=== PATIENT | female | born 1960 | race Caucasian/White ===

== ENCOUNTER 2018-10-19 04:47 | Emergency (ER) | payer OTHER ==
[2018-10-19] MEDS ORDERED: Ketorolac 60 MG/2 ML SDV IM ONE (05:16)
[2018-10-19] MEDS ORDERED: Ondansetron 4 MG Tab.DIS PO ONE (05:17)
[2018-10-19] MEDS ORDERED: Acetaminophen/oxyCODONE 325-5 MG Tab PO ONE (05:22)
--- NOTE | 2018-10-19 05:28 | EDM.PDOC ---
ED HPI GENERAL MEDICAL PROBLEM - General Chief Complaint: General Stated Complaint: STOMACH PAIN-LEFT SIDE, BACK PAIN Time Seen by Provider: 10/19/18 05:15 Source of Information: Reports: Patient, Old Records, RN History Limitations: Reports: No Limitations - History of Present Illness INITIAL COMMENTS - FREE TEXT/NARRATIVE: 58 yo female here with L flank and L sided abdominal pain. This has come and gone for a couple days, but is more steady tonight. She has had nausea on and off tonight, but no vomiting. No fever. No dysuria or hematuria. Is s/p gastric bypass. Has a pHx of kidney stones and this reminds her of that. Onset: Sudden Onset Date: 10/16/18 Duration: Day(s):, Intermittent, Waxing/Waning Location: Reports: Abdomen (L sided) left flank/ abd Pain Score (Numeric/FACES): 6 - Related Data Allergies Allergy/AdvReac Type Severity Reaction Status Date / Time No Known Allergies Allergy Verified 10/19/18 05:01 Home Meds: Home Meds Cholecalciferol (Vitamin D3) [Vitamin D3] 4,000 unit PO DAILY 10/19/18 [History] Cyanocobalamin (Vitamin B12) [Vitamin B12] 1,000 mcg PO DAILY 10/19/18 [History] Ferrous Sulfate [Iron] 325 mg PO DAILY 10/19/18 [History] Levothyroxine Sodium [Synthroid] 100 mcg PO ACBREAKFAST 10/19/18 [History] Multivit &Minerals/Ferrous Fum [Multivitamin Liquid] 15 ml PO DAILY 10/19/18 [ History] Vitamin B Complex 1 each PO DAILY 10/19/18 [History] buPROPion [Wellbutrin] 100 mg PO BID 10/19/18 [History] Past Medical History HEENT History: Reports: Impaired Vision Respiratory History: Reports: Asthma Gastrointestinal History: Reports: Chronic Constipation Genitourinary History: Reports: Renal Calculus [employer] History: Reports: Musculoskeletal History: Reports: Osteoarthritis Psychiatric History: Reports: Depression Endocrine/Metabolic History: Reports: Hypothyroidism, Obesity/BMI 30+ - Past Surgical History GI Surgical History: Reports: Bariatric Procedure, Cholecystectomy, Colonoscopy Female Surgical History: Reports: Hysterectomy Musculoskeletal Surgical History: Reports: Hip Replacement Social & Family History - Tobacco Use Smoking Status *Q: Never Smoker - Caffeine Use Caffeine Use: Reports: Coffee, Soda - Recreational Drug Use Recreational Drug Use: No ED ROS GENERAL - Review of Systems Review Of Systems: See Below Constitutional: Reports: No Symptoms HEENT: Reports: No Symptoms Respiratory: Reports: No Symptoms Cardiovascular: Reports: No Symptoms Endocrine: Reports: No Symptoms GI/Abdominal: Reports: Abdominal Pain (L sided), Nausea. Denies: Black Stool, Bloody Stool, Constipation, Diarrhea, Distension, Flatus, Hematemesis, Hematochezia, Melena, Vomiting : Reports: Flank Pain (intermittent L flank pain). Denies: Dysuria, Frequency , Hematuria, Incontinence, Urgency, Urinary Retention Musculoskeletal: Reports: No Symptoms Skin: Reports: No Symptoms Neurological: Reports: No Symptoms ED EXAM, GENERAL - Physical Exam Exam: See Below Exam Limited By: No Limitations General Appearance: Alert, WD/WN, No Apparent Distress, Obese Eye Exam: Bilateral Eye: Normal Inspection Ears: Normal External Exam, Normal Canal, Hearing Grossly Normal Ear Exam: Bilateral Ear: Auricle Normal, Canal Normal Nose: Normal Inspection, No Blood Throat/Mouth: Normal Inspection, Normal Lips, Normal Oropharynx, Normal Voice, No Airway Compromise Head: Atraumatic, Normocephalic Neck: Normal Inspection Respiratory/Chest: No Respiratory Distress, Lungs Clear, Normal Breath Sounds, No Accessory Muscle Use Cardiovascular: Regular Rate, Rhythm, No Edema GI/Abdominal: Normal Bowel Sounds, Soft, Non-Tender, No Distention Back Exam: Normal Inspection. No: CVA Tenderness (R), CVA Tenderness (L) Extremities: Normal Inspection, Normal Range of Motion, Non-Tender, No Pedal Edema Neurological: Alert, Oriented, CN II-XII Intact, Normal Cognition, No Motor/ Sensory Deficits Psychiatric: Normal Affect, Normal Mood Skin Exam: Warm, Dry, Intact, Normal Color, No Rash Course - Vital Signs Last Recorded V/S: Last Vital Signs Temp 35.9 C 10/19/18 05:05 Pulse 72 10/19/18 05:05 Resp 18 10/19/18 05:05 BP 146/76 H 10/19/18 05:05 Pulse Ox 93 L 10/19/18 05:05 - Orders/Labs/Meds Orders: Active Orders 24 hr Category Date Time Status Abdomen Pelvis wo Cont [CT] Stat Exams 10/19/18 05:48 Taken Labs: Laboratory Tests 01/07/19 Range/Units 05:19 Urine Color Yellow Urine Appearance Clear Urine pH 7.0 (4.5-8.0) Ur Specific [place] 1.005 L (1.008-1.030) Urine Protein Negative (NEGATIVE) mg/dL Urine Glucose (UA) Normal (NEGATIVE) mg/dL Urine Ketones Negative (NEGATIVE) mg/dL Urine Occult Blood Negative (NEGATIVE) Urine Nitrite Negative (NEGATIVE) Urine Bilirubin Negative (NEGATIVE) Urine Urobilinogen Normal (NORMAL) mg/dL Ur Leukocyte Esterase Small (NEGATIVE) Urine RBC 0-5 (0-5) Urine WBC 0-5 (0-5) Ur Epithelial Cells Moderate Amorphous Sediment Not seen Urine Bacteria Few Urine Mucus Not seen Meds: Medications Discontinued Medications Generic Name Dose Route Start Last Admin Trade Name Freq PRN Reason Stop Dose Admin Ketorolac Tromethamine 60 mg 10/19/18 05:16 10/19/18 05:30 Toradol IM 10/19/18 05:17 60 mg ONETIME ONE Administration Ondansetron HCl 4 mg 10/19/18 05:17 10/19/18 05:29 Zofran Odt PO 10/19/18 05:18 4 mg ONETIME ONE Administration Oxycodone/Acetaminophen 1 tab 10/19/18 05:22 10/19/18 05:29 Percocet 325-5 Mg PO 10/19/18 05:23 1 tab ONETIME ONE Administration - Radiology Interpretation Free Text/Narrative:: CT abd/pelvis-6-7 mm stone proximal L ureter CT Results Date: 10/19/18 CT Results Time: 06:40 Departure - Departure Time of Disposition: 07:00 Disposition: Home, Self-Care 01 Condition: Fair Clinical Impression: Ureterolithiasis - Discharge Information *PRESCRIPTION DRUG MONITORING PROGRAM REVIEWED*: No *COPY OF PRESCRIPTION DRUG MONITORING REPORT IN PATIENT BLUE: No Instructions: Kidney Stones, [id number] Referrals: Joshua Perez MD [Primary Care Provider] - Forms: ED Department Discharge Additional Instructions: Take ibuprofen 400 mg every 6 hrs with food for pain relief. Use Zofran every 6 hrs as needed for nausea. Take Percocet as directed for added relief. Increase fluids and fiber to prevent constipation from the Percocet. F/U with urology to determine a method for handling your large kidney stone. - My Orders Last 24 Hours: My Active Orders 10/19/18 05:48 Abdomen Pelvis wo Cont [CT] Stat - Assessment/Plan Last 24 Hours: My Active Orders 10/19/18 05:48 Abdomen Pelvis wo Cont [CT] Stat
== END 2018-10-19 07:16 | disposition home or self-care (01) ==
LOC: JP.ED 04:47
DX: N13.2 Hydronephrosis with renal and ureteral calculous obstruction (principal); J45.909 Unspecified asthma, uncomplicated; E03.9 Hypothyroidism, unspecified; Z79.899 Other long term (current) drug therapy
CPT/HCPCS: 74176; 81001; 96372; 99284; A9270; J1885